=== PATIENT | female | born 1980 | race Caucasian/White ===

== ENCOUNTER 2025-01-17 08:10 | Outpatient (CLI) | payer BC, SELFPAY | END 2025-01-17 08:11 | disposition home or self-care (01) | LOC: NFLDREF 01-22 11:56 | PROVIDERS: Visit Provider Family Medicine | DX: Z00.00 Encounter for general adult medical examination without abnormal findings (principal); M79.605 Pain in left leg; R07.9 Chest pain, unspecified; R53.83 Other fatigue | CPT/HCPCS: 80053; 80061; 84443 ==